=== PATIENT | male | born 1945 | race Caucasian/White ===

== ENCOUNTER 2022-07-20 15:09 | Inpatient (IN) | payer OTHER ==
[~2022-07-20] VITALS: Ht 185.4 cm; Wt 114.0 kg
[2022-07-20] MEDS ORDERED: SODIUM CHLORIDE 0.9% 1,000 ML IV ONE (16:45)
[2022-07-20 17:15] LABS: Basophils # (auto) 0.1 10 ^3/uL (0-0.2); Eosinophils # (auto) 0 10 ^3/uL (0-0.8); Eosinophils % (auto) 0.8 % (0.0-7.0); Hemoglobin 14.1 g/dL (13.5-17.5); Lymphocytes # (auto) 0.6 10 ^3/uL (0.4-5.4); Lymphocytes % (auto) 10.1 % (10.0-50.0); Mean Corpuscular Hemoglobin 33.7 pg (28.0-32.0); Mean Corpuscular Hgb Conc. 34.3 g/dL (32.0-36.0); Mean Corpuscular Volume 98.3 fL (80.0-100.0); Monocytes # (auto) 0.6 10 ^3/uL (0-1.3); Monocytes % (auto) 9.3 % (0.0-12.0); Neutrophils # (auto) 4.7 10 ^3/uL (1.6-8.6); Neutrophils % (auto) 78.8 % (37.0-80.0); Nucleated Red Blood Cells % 0.1 %; Red Blood Cells 4.17 10^6/uL (4.5-5.90); Red Cell Distribution Width 13.8 % (11.8-14.3)
[2022-07-20 17:40] LABS: Albumin 3.2 g/dL (3.4-5.0); BUN/Creatinine Ratio 13.3; Calcium 8.8 mg/dL (8.5-10.1); Potassium 3.7 mmol/L (3.5-5.1)
[2022-07-20 17:43] LABS: Bilirubin, Total 2.8 mg/dL (0.2-1.0); Total Protein 7.8 g/dL (6.4-8.2)
[2022-07-20] MEDS ORDERED: FUROSEMIDE 40 MG/4 ML VIAL IV ONE (23:30)
[2022-07-21] MEDS ORDERED: DOCUSATE SOD 100 MG CAP PO PRN (00:15)
[2022-07-21] MEDS ORDERED: MORPHINE SULFATE INJ 2 MG/ml SYRG IV PRN (00:15)
[2022-07-21] MEDS ORDERED: ACETAMINOPHEN 325 MG TAB PO PRN (00:15)
[2022-07-21] MEDS ORDERED: HYDROcodone-ACET 5/325MG TAB PO PRN (00:15)
[2022-07-21] MEDS ORDERED: MAALOX PLUS or MAALOX 30 ML PO PRN (00:15)
[2022-07-21] MEDS ORDERED: ONDANSETRON HCL 4 MG/2 ML VIAL IV PRN (00:15)
[2022-07-21 00:53] LABS: Urine Bacteria MANY /hpf (None Seen); Urine Blood TRACE /uL (Negative); Urine Mucus FEW (None Seen); Urine Specific Gravity 1.024 (1.001-1.035); Urine WBC 242 /hpf (0 - 3)
[2022-07-21 06:46] LABS: Basophils # (auto) 0.1 10 ^3/uL (0-0.2); Basophils % (auto) 0.8 % (0.0-2.0); Eosinophils # (auto) 0.1 10 ^3/uL (0-0.8); Eosinophils % (auto) 0.7 % (0.0-7.0); Hematocrit 40.3 % (41.0-53.0); Lymphocytes # (auto) 0.7 10 ^3/uL (0.4-5.4); Mean Corpuscular Hemoglobin 33.9 pg (28.0-32.0); Mean Corpuscular Hgb Conc. 34.6 g/dL (32.0-36.0); Monocytes # (auto) 0.8 10 ^3/uL (0-1.3); Monocytes % (auto) 10.5 % (0.0-12.0); Neutrophils # (auto) 5.8 10 ^3/uL (1.6-8.6); Red Blood Cells 4.11 10^6/uL (4.5-5.90); Red Cell Distribution Width 14.4 % (11.8-14.3); White Blood Cell 7.3 10^3/uL (4.4-10.8)
[2022-07-21 07:34] LABS: Calcium 8.6 mg/dL (8.5-10.1); Potassium 3.6 mmol/L (3.5-5.1)
[2022-07-21 07:36] LABS: BUN/Creatinine Ratio 12.8
[2022-07-21] MEDS ORDERED: FUROSEMIDE 40 MG/4 ML VIAL IV SCH (10:00)
[2022-07-21] MEDS: LISINOPRIL 20 MG TAB PO SCH (12:26)
[2022-07-21 17:00] VITALS: BP 145/55
[2022-07-21 17:35] VITALS: BP 145/55
[2022-07-21 20:00] VITALS: BP 134/53
[2022-07-21] MEDS: ENOXAPARIN SOD 100 MG/1 ML SYRINGE SC SCH (21:37)
[2022-07-21 22:00] VITALS: BP 134/55
[2022-07-22 05:00] VITALS: BP 143/60
[2022-07-22] MEDS: FUROSEMIDE 40 MG/4 ML VIAL IV SCH ×2 (06:07→17:08)
[2022-07-22 07:33] LABS: Calcium 8.5 mg/dL (8.5-10.1); Potassium 3.9 mmol/L (3.5-5.1)
[2022-07-22 07:35] LABS: BUN/Creatinine Ratio 15.4
[2022-07-22 09:00] VITALS: BP 134/63
[2022-07-22] MEDS ORDERED: ENOXAPARIN SOD 40 MG/0.4 ML SYRINGE SC SCH (10:00)
[2022-07-22] MEDS: LISINOPRIL 20 MG TAB PO SCH (11:27)
[2022-07-22] MEDS: ENOXAPARIN SOD 100 MG/1 ML SYRINGE SC SCH ×2 (11:28→22:05)
[2022-07-22] MEDS: PANTOPRAZOLE 40 MG TAB PO SCH (11:28)
[2022-07-22 12:34] VITALS: BP 130/58
[2022-07-22 17:00] VITALS: BP 118/53
[2022-07-22] MEDS: PIPERACILLIN-TAZOB 3.375GM 100 ML IV SCH ×2 (17:09→22:05)
[2022-07-22 22:00] VITALS: BP 135/51
[2022-07-23 05:00] VITALS: BP 138/66
[2022-07-23] MEDS: PIPERACILLIN-TAZOB 3.375GM 100 ML IV SCH ×3 (05:54→22:20)
[2022-07-23] MEDS: FUROSEMIDE 40 MG/4 ML VIAL IV SCH ×2 (05:54→18:10)
[2022-07-23 08:00] VITALS: BP 116/77
[2022-07-23 08:54] VITALS: BP 116/77
[2022-07-23] MEDS: PANTOPRAZOLE 40 MG TAB PO SCH (09:48)
[2022-07-23] MEDS: ENOXAPARIN SOD 100 MG/1 ML SYRINGE SC SCH ×2 (09:48→22:20)
[2022-07-23] MEDS: LISINOPRIL 20 MG TAB PO SCH (09:49)
[2022-07-23 16:42] VITALS: BP 135/57
[2022-07-23 22:00] VITALS: BP 132/53
[2022-07-24 05:00] VITALS: BP 115/32
[2022-07-24] MEDS: FUROSEMIDE 40 MG/4 ML VIAL IV SCH (06:14)
[2022-07-24] MEDS: PIPERACILLIN-TAZOB 3.375GM 100 ML IV SCH ×2 (06:14→14:15)
[2022-07-24 08:00] VITALS: BP 123/55
[2022-07-24 08:33] VITALS: BP 123/55
[2022-07-24 09:23] LABS: Basophils # (auto) 0.1 10 ^3/uL (0-0.2); Basophils % (auto) 1.1 % (0.0-2.0); Eosinophils # (auto) 0.2 10 ^3/uL (0-0.8); Eosinophils % (auto) 3.4 % (0.0-7.0); Hematocrit 39.9 % (41.0-53.0); Hemoglobin 13.7 g/dL (13.5-17.5); Lymphocytes # (auto) 0.7 10 ^3/uL (0.4-5.4); Mean Corpuscular Hemoglobin 33.4 pg (28.0-32.0); Mean Corpuscular Hgb Conc. 34.4 g/dL (32.0-36.0); Mean Corpuscular Volume 97.1 fL (80.0-100.0); Monocytes # (auto) 0.6 10 ^3/uL (0-1.3); Monocytes % (auto) 11.8 % (0.0-12.0); Neutrophils # (auto) 3.6 10 ^3/uL (1.6-8.6); Neutrophils % (auto) 69.7 % (37.0-80.0); Nucleated Red Blood Cells % 0.1 %; Red Blood Cells 4.11 10^6/uL (4.5-5.90); Red Cell Distribution Width 13.9 % (11.8-14.3); White Blood Cell 5.2 10^3/uL (4.4-10.8)
[2022-07-24 09:44] LABS: Albumin 3.4 g/dL (3.4-5.0); Calcium 8.4 mg/dL (8.5-10.1); Potassium 3.4 mmol/L (3.5-5.1)
[2022-07-24 09:48] LABS: Bilirubin, Total 2.1 mg/dL (0.2-1.0); Total Protein 7.9 g/dL (6.4-8.2)
[2022-07-24] MEDS: PANTOPRAZOLE 40 MG TAB PO SCH (09:56)
[2022-07-24] MEDS: LISINOPRIL 20 MG TAB PO SCH (09:56)
[2022-07-24] MEDS ORDERED: APIXABAN 5 MG TAB PO SCH (10:00)
[2022-07-24 13:00] VITALS: BP 122/57
[2022-07-24] MEDS ORDERED: PANT40T PO (13:35)
[2022-07-24] MEDS ORDERED: FURO1TAB33 PO (13:35)
[2022-07-24] MEDS ORDERED: LISI20TA28 PO (13:35)
[2022-07-24] MEDS ORDERED: APIX5TAB PO (13:35)
[2022-07-24] MEDS ORDERED: CLIN-203 PO (13:47)
[2022-07-24 14:01] VITALS: BP 122/57
[2022-07-24 16:55] VITALS: BP 101/65
== END 2022-07-24 17:19 | disposition home health service (06) | DRG 291 ==
LOC: EDBD 15:09 → ER 15:11 → OVERFLOW 07-21 00:02 → WEST WING 07-21 17:34 → TELE-WESTW 07-21 20:53
PROVIDERS: ADMIT Hospitalist; ATTEND Internal Medicine
DX: I11.0 Hypertensive heart disease with heart failure (principal); I50.23 Acute on chronic systolic (congestive) heart failure; L03.116 Cellulitis of left lower limb; I48.92 Unspecified atrial flutter; N39.0 Urinary tract infection, site not specified; E44.1 Mild protein-calorie malnutrition; L03.115 Cellulitis of right lower limb; I27.20 Pulmonary hypertension, unspecified; R62.7 Adult failure to thrive; Z20.822 Contact with and (suspected) exposure to COVID-19; F17.290 Nicotine dependence, other tobacco product, uncomplicated; Z68.34 Body mass index [BMI] 34.0-34.9, adult
CPT/HCPCS: 36415; 71045; 71250; 78582; 80048; 80053; 80061; 81001; 83036; 83735; 83880; 84484; 85025; 85379; 87426; 93306; 93925; 93970; 96361; 96374; 96376; 97110; 97116; 97163; 97530; G0378; J2543